=== PATIENT | female | born 1970 | race Caucasian/White ===

== ENCOUNTER 2022-05-20 03:31 | Emergency (ER) | payer MEDICAID ==
[~2022-05-20] VITALS: Ht 157.5 cm; Wt 63.5 kg
[2022-05-20 03:40] VITALS: BP_SYST 117
[2022-05-20] MEDS ORDERED: CIPR500T5 PO (04:26)
[2022-05-20] MEDS ORDERED: IBUP-1969 PO (04:26)
[2022-05-20] MEDS ORDERED: KETOROLAC TROMETHAMINE 60 MG/2 ML VIAL IM ONE (04:30)
[2022-05-20 04:53] VITALS: BP_SYST 120
--- NOTE | 2022-05-20 04:56 | NUR ---
Patient given written and verbal discharge instructions and verbalizes understanding. ER MD discussed with patient the results and treatment provided. Patient in stable condition. ID arm band removed. I Rx of Ciprofloxacin, Ibuprofen given. Patient educated on pain management and to follow up with PMD. Pain Scale 0. Opportunity for questions provided and answered.
== END 2022-05-20 04:50 | disposition home or self-care (01) ==
LOC: SED 03:31
DX: N39.0 Urinary tract infection, site not specified (principal); R10.9 Unspecified abdominal pain; Z79.899 Other long term (current) drug therapy
CPT/HCPCS: 99283; 81002; 81025; 96372; J1885

== ENCOUNTER 2022-05-21 09:39 | Inpatient (IN) | payer MEDICAID ==
[~2022-05-21] VITALS: Ht 157.5 cm; Wt 65.8 kg
[~2022-05-21 09:39] MED LIST: CIPR500T5 PO; IBUP-1969 PO
--- NOTE | 2022-05-21 09:46 | NUR ---
Patient triaged and placed in waiting room. VSS and patient appears in no acute distress at this time. Accompanied by DAUGHTER AND SON, awaiting available bed, and MD notified of need for MSE.
--- NOTE | 2022-05-21 09:55 | NUR ---
ER DR. HERRON EXAMINING PT
--- NOTE | 2022-05-21 10:09 | NUR ---
Placed in room 02 . Placed on pleat taper, blood pressure machine and pulse oximeter. To gown for exam. Side rails up. Report given to GRICEL SIMMONS.
[2022-05-21 10:39] LABS: BASOPHILS % (AUTO) 0.1 % (0.0-2.0); EOSINOPHILS % (AUTO) 0.1 % (0.0-4.0); HEMATOCRIT 32.6 % (36-48); HEMOGLOBIN 10.7 g/dL (12.0-16.0); LYMPHOCYTES # (AUTO) 0.3 K/uL (1.0-5.5); LYMPHOCYTES % (AUTO) 4.9 % (20.5-51.5); MEAN CORPUSCULAR HEMOGLOBIN 28 pg (27-31); MEAN CORPUSCULAR HGB CONC 33 % (32-36); MEAN CORPUSCULAR VOLUME 84 fL (79.0-98.0); MONOCYTES # (AUTO) 0.1 K/uL (0.0-1.0); NEUTROPHILS # (AUTO) 6.2 K/uL (1.8-7.7); NEUTROPHILS % (AUTO) 93.9 % (40.0-70.0); PLATELET COUNT (AUTO) 272 K/uL (130-430); RED BLOOD CELL COUNT(AUTO) 3.89 MIL/uL (4.2-6.2); WHITE BLOOD COUNT (AUTO) 6.6 K/uL (4.8-10.8)
[2022-05-21] MEDS ORDERED: MORPHINE 4 MG INJ. 4 MG/ML VIAL IVP ONE (10:45)
[2022-05-21] MEDS ORDERED: ONDANSETRON HCL 4 MG/2 ML VIAL IVP ONE (10:45)
[2022-05-21 10:53] LABS: ANION GAP 19 (5-15); CALCIUM 8.1 mg/dL (8.4-11.0); CHLORIDE 102 mmol/L (98-107); CREATININE 0.77 mg/dL (0.55-1.30); GLUCOSE 130 mg/dL (70-99); UREA NITROGEN, BLOOD 13 mg/dL (8-21)
[2022-05-21 10:54] LABS: GFR AFRICAN AMERICAN 101 mL/min (>90)
[2022-05-21 11:06] LABS: INR 1.1 (0.8-1.2)
[2022-05-21 11:09] LABS: ALANINE AMINOTRANSFERASE 20 U/L (12-78); ALBUMIN 3.1 g/dL (3.4-4.8); ASPARTATE AMINOTRANSFERASE 16 U/L (10-37); LIPASE 59 U/L (73-393); TOTAL BILIRUBIN 0.5 mg/dL (0.0-1.0)
[2022-05-21] MEDS ORDERED: NACL 0.9% 1,000 ML IV ONE ×2 (11:15→12:00)
[2022-05-21] MEDS ORDERED: cefTRIAXone 1 GM in D5W 50 ML IV ONE (11:15)
[2022-05-21] MEDS ORDERED: cefTRIAXone 1 GM VIAL ONE (11:25)
--- NOTE | 2022-05-21 11:54 | NUR ---
NOTIFED ED ADMITTING, DEMETRIUS REGARDING DR. HERRON'S REQUEST FOR ADMISSION/TRANSFER. PER DR. HERRON, PT IS STABLE FOR TRANSFER. [facility]. PER FACESHEET: [facility]
[2022-05-21 12:30] LABS: BILIRUBIN,URINE NEGATIVE (NEGATIVE); BLOOD, URINE 3+ (NEGATIVE); CLARITY/URINE CLEAR (CLEAR); COLOR,URINE YELLOW (YELLOW); GLUCOSE,URINE NEGATIVE (NEGATIVE); KETONES,URINE 1+ (NEGATIVE); LEUKOCYTE ESTERASE ,URINE TRACE (NEGATIVE); NITRITE, URINE NEGATIVE (NEGATIVE); PH,URINE 5.5 (5.0-8.0); PROTEIN URINE 1+ (NEGATIVE); UROBILINOGEN,URINE 0.2 (0.2-1.0)
[2022-05-21] MEDS ORDERED: PIPERACILLIN/TAZO 3.375 GM in NS 50 ML IV ONE (12:45)
[2022-05-21 12:47] LABS: BACTERIA,URINE FEW /HPF (None Seen); MUCUS,URINE 1+ /LPF (None Seen)
[2022-05-21] MEDS ORDERED: PIPERACILLIN/TAZOBACTAM 3.375 GM/VIAL (ZOSYN) IV ONE (13:21)
--- NOTE | 2022-05-21 15:02 | NUR ---
Admit bed requested Patient will be admitted to care of . Admitted to MS unit. Diagnosis SEPSIS, UTI Inpatient (Yes or No) YES Observation (Yes or No) NO Orientation concerns or request close to nursing station (Yes or No) NO Covid Status NEGATIVE On vent or bipap NO Isolation requirements NO Needs a sitter NO From Home (Yes or if No enter name of facility) HOME Requires Dialysis (Yes or No) NO Med Rec Completed (Yes of No) YES
--- NOTE | 2022-05-21 16:27 | NUR ---
PT C/O HEADCAHE 09/27-GRADUAL ONSET, ALSO STATES SHE HAS CHILLS. WILL MEDICATE ORDERED.
[2022-05-21] MEDS: MORPHINE 2 MG/ML INJ. SYRINGE IV PRN ×2 (16:37→22:19)
[2022-05-21] MEDS: 0.45% NACL 1,000 ML IV SCH ×2 (16:45→21:14)
[2022-05-21] MEDS ORDERED: ACETAMINOPHEN 500 MG TABLET ONE (18:18)
--- NOTE | 2022-05-21 18:24 | NUR ---
PT REPORTS CHIILS, PT FEBRILE AT 101.1, MEDICATED WITH TYLENOL PER DR MCPHERSON. COOLING MEASURES STARTED.
--- NOTE | 2022-05-21 18:57 | NUR ---
ADMISSION NOTE Received patient from ER via jonathan, received report from GLOBAL CONSUMER SECTOR VICE PRESIDENT. Patient admitted with diagnosis of sepsis/UTI. Patient oriented to hospital routine, call light, toileting and safety-patient verbalized understanding. Admission process initiated.
--- NOTE | 2022-05-21 18:59 | NUR ---
Patient will be admitted to care of DR SHORE. Admitted to TELE unit. Will go to room . Belongings list completed. Complete and up to date summary report printed. SBAR report to be given at bedside with opportunity for questions.
[2022-05-21 19:00] VITALS: BP_SYST 110
[2022-05-21] MEDS: ACETAMINOPHEN 325 MG TABLET PO PRN (22:17)
[2022-05-21] MEDS: ONDANSETRON HCL 4 MG/2 ML VIAL IM PRN (22:17)
[2022-05-21] MEDS: LORazepam 1 MG TABLET PO PRN (22:18)
[2022-05-21] MEDS: DOCUSATE SODIUM 250 MG CAPSULE PO SCH (22:27)
--- NOTE | 2022-05-22 01:11 | NUR ---
Patient asleep in bed on taken over shift. Breathing even and unlabored on RA. no distress noted at this time.will continue with plan of care
--- NOTE | 2022-05-22 04:55 | NUR ---
HIGH ALERT NOTE: Called back at [phone] identified within the medical roster to verify physician authenticity.
[2022-05-22] MEDS ORDERED: LORazepam 2 MG/ML VIAL IVP ONE (05:00)
[2022-05-22] MEDS ORDERED: LORazepam 2 MG/ML VIAL ONE (05:07)
[2022-05-22 05:47] VITALS: BP_SYST 128
--- NOTE | 2022-05-22 05:57 | NUR ---
CONSULTATION PAGED/CALLED Reason for Consultation: CHEST DISCOMFORT/SOB Person Who was Notified: VIA TEXT Consulting Physician: Rack Production Worker Specialty: CARDIO Ordering Physician: MONE
[2022-05-22 06:28] LABS: BASOPHILS % (AUTO) 0.4 % (0.0-2.0); HEMOGLOBIN 9.7 g/dL (12.0-16.0); LYMPHOCYTES # (AUTO) 0.7 K/uL (1.0-5.5); LYMPHOCYTES % (AUTO) 9.2 % (20.5-51.5); MEAN CORPUSCULAR HEMOGLOBIN 28 pg (27-31); MEAN CORPUSCULAR HGB CONC 34 % (32-36); MEAN CORPUSCULAR VOLUME 84 fL (79.0-98.0); MONOCYTES # (AUTO) 0.2 K/uL (0.0-1.0); MONOCYTES % (AUTO) 2.3 % (1.7-9.3); NEUTROPHILS # (AUTO) 6.3 K/uL (1.8-7.7); NEUTROPHILS % (AUTO) 88.1 % (40.0-70.0); PLATELET COUNT (AUTO) 245 K/uL (130-430); RED BLOOD CELL COUNT(AUTO) 3.47 MIL/uL (4.2-6.2); RED CELL DISTRIBUTION WIDTH 15.1 % (9.0-15.0); WHITE BLOOD COUNT (AUTO) 7.2 K/uL (4.8-10.8)
--- NOTE | 2022-05-22 06:43 | NUR ---
Pt alert, oriented x1-2, confused, even and unlabored breathing, vss, f/c draining under gravity, had BM this morning, BS this AM 142, no insulin coverage, safety precaution maintained. Dr Linn ordered 5mg of Haldol IM x1, order placed. Med unavailable as of the time report was handed over to RN, stable in stable condition. Addendum: 05/22/22 at 0648 by [employer] GRICEL Rose RN This note was meant for another pt, not for this pt, please disregard
--- NOTE | 2022-05-22 06:49 | NUR ---
Around 5am pt started screaming that she cannot breath and she's having chest discomfort, v/s was checked 132/68, 95%, HR 157, t 99.8, Dr. Andrews was notified and he ordered 4L O2 via n/c, cardio consult this morning, EKG Stat, put pt back on tele and Ativan 0.5mg IV x1. All order carried out. Pt calm down after about 10mins, blood work was drawn by lab this AM, 1/2 NS at 75cc ongoing w/o infiltration. vss, pt in stable condition, will be endorsed to incoming RN
[2022-05-22 06:52] LABS: CALCIUM 8.2 mg/dL (8.4-11.0); CREATININE 0.88 mg/dL (0.55-1.30)
[2022-05-22 08:10] VITALS: BP_SYST 95
[2022-05-22] MEDS: DOCUSATE SODIUM 250 MG CAPSULE PO SCH ×2 (08:12→20:46)
[2022-05-22] MEDS: ACETAMINOPHEN 325 MG TABLET PO PRN ×2 (08:13→22:38)
[2022-05-22] MEDS: POLYETHYLENE GLYCOL 3350, 17 GM/ POWD.PACK PO SCH (08:13)
--- NOTE | 2022-05-22 08:13 | NUR ---
Scheduled IV abx and po medications given per order. Patient medicated for 3/10 headache as well. Stable at this time.
[2022-05-22] MEDS: cefTRIAXone 1 GM IVPB PREMIX 50 ML IV SCH (10:09)
--- NOTE | 2022-05-22 10:09 | NUR ---
Scheduled IV abx given per order. Patient stable; resting comfortably in bed at this time.
--- NOTE | 2022-05-22 12:45 | NUR ---
Patient stable; resting comfortably in bed with no distress and no complaint of pain.
[2022-05-22 12:50] VITALS: BP_SYST 105
--- NOTE | 2022-05-22 14:35 | NUR ---
Patient resting comfortably in bed with daughter, Tierra at bedside. Patient stable at this time.
--- NOTE | 2022-05-22 15:45 | NUR ---
Patient resting in bed with daughter and Barb (tech) at bedside; 2D echo in progress. Patient stable at this time.
[2022-05-22 16:28] VITALS: BP_SYST 101
[2022-05-22] MEDS: 0.45% NACL 1,000 ML IV SCH (18:29)
--- NOTE | 2022-05-22 18:29 | NUR ---
Started new IVF bag. Patient stable throughout shift.
[2022-05-22 20:00] VITALS: BP_SYST 112
[2022-05-22] MEDS: ONDANSETRON HCL 4 MG/2 ML VIAL IM PRN (22:38)
[2022-05-22] MEDS: LORazepam 1 MG TABLET PO PRN (22:48)
[2022-05-23] VITALS: BP_SYST 115
[2022-05-23 06:18] LABS: BASOPHILS % (AUTO) 0.4 % (0.0-2.0); EOSINOPHILS % (AUTO) 0.6 % (0.0-4.0); HEMATOCRIT 26.7 % (36-48); HEMOGLOBIN 9.2 g/dL (12.0-16.0); LYMPHOCYTES # (AUTO) 0.5 K/uL (1.0-5.5); LYMPHOCYTES % (AUTO) 7.9 % (20.5-51.5); MEAN CORPUSCULAR HEMOGLOBIN 28 pg (27-31); MEAN CORPUSCULAR HGB CONC 34 % (32-36); MEAN CORPUSCULAR VOLUME 81 fL (79.0-98.0); MONOCYTES # (AUTO) 0.3 K/uL (0.0-1.0); MONOCYTES % (AUTO) 4.4 % (1.7-9.3); NEUTROPHILS # (AUTO) 5.3 K/uL (1.8-7.7); NEUTROPHILS % (AUTO) 86.7 % (40.0-70.0); PLATELET COUNT (AUTO) 243 K/uL (130-430); RED BLOOD CELL COUNT(AUTO) 3.31 MIL/uL (4.2-6.2); RED CELL DISTRIBUTION WIDTH 14.8 % (9.0-15.0); WHITE BLOOD COUNT (AUTO) 6.1 K/uL (4.8-10.8)
[2022-05-23] MEDS: 0.45% NACL 1,000 ML IV SCH (06:45)
[2022-05-23 06:46] LABS: CALCIUM 8.4 mg/dL (8.4-11.0); CREATININE 0.78 mg/dL (0.55-1.30)
--- NOTE | 2022-05-23 07:50 | NUR ---
Patient resting comfortably in bed with no distress noted. Patient stable at this time.
[2022-05-23 08:00] VITALS: BP_SYST 116
[2022-05-23] MEDS: POLYETHYLENE GLYCOL 3350, 17 GM/ POWD.PACK PO SCH ×2 (09:00→09:48)
[2022-05-23] MEDS: DOCUSATE SODIUM 250 MG CAPSULE PO SCH (09:48)
--- NOTE | 2022-05-23 09:50 | NUR ---
Scheduled medication given per order. Patient stable; resting comfortably in bed at this time.
[2022-05-23] MEDS: cefTRIAXone 1 GM IVPB PREMIX 50 ML IV SCH (10:00)
[2022-05-23 12:10] VITALS: BP_SYST 118
--- NOTE | 2022-05-23 12:10 | NUR ---
Patient resting comfortably in bed with daughter, Tierra at bedside. Patient stable at this time.
--- NOTE | 2022-05-23 12:20 | NUR ---
Patient and daughter expressed that patient wants to leave AMA today. Patient refused to allow staff nurses to insert IV line. Informed both that PICC line nurse will be today to insert midline so IV abx can be given. Patient was very concerned about receiving the ordered IV abx. Both stated that no doctor has been in to see patient. I informed both that the nurse practitioner, Maira was at the bedside yesterday and today. Patient stated that she was not aware the Maira was the LOG CHIPPER. Patient's entered room. Patient filled out request for medical records; I walked the request to salon receptionist in the lobby.
--- NOTE | 2022-05-23 13:35 | NUR ---
Patient resting quietly in bed with at bedside. Patient stable at this time.
--- NOTE | 2022-05-23 15:30 | NUR ---
Patient left hospital without advising staff. Patient did not have any IV access. She left with all personal belongings. Calls were made to ph#'s on file; no response. Charge nurse, Uzma MONSALVE, called patient's number, to no avail. CN was finally able to reach patient's daughter, Tierra.
== END 2022-05-23 15:30 | disposition left against medical advice (07) | DRG 720 ==
LOC: SED 09:39 → SMU 14:43 → STU 05-22 04:51 → SMU 05-23 10:13
PROVIDERS: ADMIT Internal Medicine; ATTEND Internal Medicine
DX: A41.9 Sepsis, unspecified organism (principal); R65.21 Severe sepsis with septic shock; E46 Unspecified protein-calorie malnutrition; N12 Tubulo-interstitial nephritis, not specified as acute or chronic; Z20.822 Contact with and (suspected) exposure to COVID-19; Z79.1 Long term (current) use of non-steroidal anti-inflammatories (NSAID); Z79.899 Other long term (current) drug therapy; Z68.26 Body mass index [BMI] 26.0-26.9, adult
CPT/HCPCS: 36415; 71045; 76376; 80048; 80053; 81000; 83605; 83690; 83735; 83880; 84484; 85025; 85610-TC; 85730-TC; 87040; 87086; 93005; 93306; 94760; 96365; 96367; 96375; 99291; G0378; J0696; J1956; J2060; J2270; J2405; J2543; J7060